=== PATIENT | male | born 2000 | race Caucasian/White ===

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

== ENCOUNTER 2023-08-18 13:41 | Outpatient (CLI) | payer BC, MEDICAID | END 2023-08-18 23:59 | disposition home or self-care (01) | LOC: RAD 13:41 | PROVIDERS: ATTEND Physician Assistant | DX: R19.5 Other fecal abnormalities (principal); K59.00 Constipation, unspecified | CPT/HCPCS: 74022 ==